=== PATIENT | male | born 1990 | race African-American/Black ===

== ENCOUNTER 2017-02-19 10:08 | Emergency (ER) | payer SELFPAY ==
[2017-02-19 10:11] VITALS: BP 109/72
--- NOTE | 2017-02-19 10:15 | ER Document Report ---
ED Medical Screen (RME) - General Stated Complaint: TOOTH PAIN Notes: Patient complains of dental pain to lower jaw both sides. Patient states swelling to right jaw started yesterday. TRAVEL OUTSIDE OF THE U.S. IN LAST 30 DAYS: No - Related Data Allergies/Adverse Reactions: No Known Allergies Allergy (Verified 09/16/16 12:15) Past Medical History Pulmonary Medical History: Reports: Hx Asthma, Hx Pneumonia - Immunizations Hx Diphtheria, Pertussis, Tetanus Vaccination: Yes Physical Exam - Vital signs Vitals: Temp Pulse Resp BP Pulse Ox 98.8 F 67 14 109/72 98 02/19/17 10:11 02/19/17 10:11 02/19/17 10:11 02/19/17 10:11 02/19/17 10:11 - HEENT Teeth diagram: 1 - decay Notes: mild facial swelling noted right side. Gums swollen around right wisdom tooth. Course - Vital Signs Vital signs: Temp Pulse Resp BP Pulse Ox 98.8 F 67 14 109/72 98 02/19/17 10:11 02/19/17 10:11 02/19/17 10:11 02/19/17 10:11 02/19/17 10:11
--- NOTE | 2017-02-19 10:56 | ER Document Report ---
ED Oral Problem - General Chief Complaint: Toothache Stated Complaint: TOOTH PAIN Notes: Patient is here complaining of pain in the lower posterior molars on both sides starting yesterday with swelling and infection on the right side starting this morning. He noted that the swollen area has just started draining and bleeding into his mouth as he was put into this examining room and he is now spitting blood. He says it has a nasty taste. Also, since the bleeding began, the swelling is starting to go down and feeling better. Has not had a previous dental abscess, but has bad teeth. Has not had a fever. No complicating factors such as diabetes. TRAVEL OUTSIDE OF THE [place] IN LAST 30 DAYS: No - Related Data Allergies/Adverse Reactions: No Known Allergies Allergy (Verified 02/19/17 10:14) Past Medical History - Social History Smoking Status: Never Smoker Chew tobacco use (# tins/day): No Frequency of alcohol use: Occasional Drug Abuse: None Family History: Reviewed & Not Pertinent, Arthritis Patient has suicidal ideation: No Patient has homicidal ideation: No Pulmonary Medical History: Reports: Hx Asthma, Hx Pneumonia Endocrine Medical History: Denies: Hx Diabetes Mellitus Type 1, Hx Diabetes Mellitus Type 2 Surgical Hx: Negative - Immunizations Hx Diphtheria, Pertussis, Tetanus Vaccination: Yes Review of Systems - Review of Systems Constitutional: denies: Fever Cardiovascular: denies: Chest pain Gastrointestinal: denies: Abdominal pain Skin: denies: Rash Physical Exam - Vital signs Vitals: Temp Pulse Resp BP Pulse Ox 98.8 F 67 14 109/72 98 02/19/17 10:11 02/19/17 10:11 02/19/17 10:11 02/19/17 10:11 02/19/17 10:11 - Notes Notes: PHYSICAL EXAMINATION: GENERAL: Well-appearing, in no acute distress. Vital signs are normal. Afebrile. HEAD: Atraumatic, normocephalic. EYES: Pupils equal round and reactive to light, extraocular movements intact. ENT: oropharynx clear without exudates. Moist mucous membranes. Cavities in the posterior most lower molars bilaterally. Some swelling noted lateral to the right carous molar which is very tender to touch. There appears to be some drainage of purulent bloody material from that region. No fluctuance felt anywhere around this swollen area. Patient says the swelling has decreased and his pain is improving. No impediment to swallowing or breathing. NECK: Normal range of motion, supple. No swelling or significant adenopathy LUNGS: Breath sounds clear and equal bilaterally. HEART: Regular rate and rhythm without murmurs. ABDOMEN: Soft, nontender. No guarding or rebound. SKIN: Warm, dry, no rashes. Course - Vital Signs Vital signs: Temp Pulse Resp BP Pulse Ox 98.8 F 67 14 109/72 98 02/19/17 10:11 02/19/17 10:11 02/19/17 10:11 02/19/17 10:11 02/19/17 10:11 Discharge - Discharge Clinical Impression: Toothache, Abscessed tooth Condition: Stable Disposition: HOME, SELF-CARE Additional Instructions: TOOTHACHE: Your pain is due to dental decay. The tooth must be repaired in order for you to feel better. You will, therefore, be referred to a dentist. We do not have dentists on the staff at [facility]. Severe swelling or drainage around a tooth usually means a dental abscess. This also requires evaluation and treatment by the dentist, but antibiotics may be prescribed while awaiting dental treatment. You should be rechecked immediately if you develop major swelling of the face, increasing pain, a lump in the jaw or gums, headache, difficulty swallowing, or fever. Dental Infection or Abscess You have an infection, perhaps an abscess (pus formation) of the gum around one of your teeth, which is probably decayed. If there is an abscess, it may drain on its own or it may need to be opened or lanced. Severe swelling or drainage around a tooth usually means a deep dental abscess which usually requires evaluation and treatment by a dentist or oral surgeon. Antibiotics may be prescribed while awaiting dental treatment. If you develop high fever with chills, worsening pain, or increasing swelling in the area, see a dentist or oral surgeon immediately or return to the Emergency Department immediately. ORAL NARCOTIC MEDICATION: You have been given a prescription for pain control. This medication is a narcotic. It's best taken with food, as nausea can result if taken on an empty stomach. Don't operate machinery or drive within six hours of taking this medication. Do not combine this medicine with alcohol, or with any medication which can cause sedation (such as cold tablets or sleeping pills) unless you get permission from the physician. Narcotics tend to cause constipation. If possible, drink plenty of fluids and eat a diet high in fiber and fruits. PENICILLIN V K: You have been given a prescription for Penicillin VK. Your physician has determined that this is the best antibiotic for your condition. Pen VK can be taken with meals, however more of the antibiotic gets into the bloodstream if it's taken on an empty stomach. Penicillin usually has no side effects. However, allergy to penicillins is common. If you have had an allergic reaction to any drug of the penicillin family, you should never take any other penicillin. Notify your doctor at once if you develop hives, itching, swelling, faintness, or shortness of breath. Gently rubbed and massaged the right side of your face where the abscess is located to gently depress pus out as it's healing. Also swish around in warm water in your mouth about 6 times a day, especially after meals. FOLLOW-UP CARE: You have been referred for follow-up care to the dentists listed below. Call the dentists office for an appointment as you were instructed or within the next two days. If you experience worsening or a significant change in your symptoms, notify the physician immediately or return to the Emergency Department at any time for re-evaluation. [facility] [address] [place], [place] Saturday mornings, by appointment [facility] [address] [place] [address] [facility] [address] [facility] [address] [facility] [address] [email or web address] [address] [place] [address] Saturday- 8:00am to 5:00 pm Will see patients from other [facility]. Charges based on income and family size and accepts Medicare, Medicaid, and Insurances Will pull molars [facility] [address] Hours of Operation 8:00 am - 4:30 pm weekdays The following dental offices accept Medicaid: [facility] Dr. Bl[address] Dr. Braga Dr. Blanco Dr. Stacy Anmol Rojas, [place], and [place] oral surgery Dr. Del Castillo ([place]) Dr. Vasquez ([place]) [facility] Drs. Davis and Rishabh ([place]) Dr. Mullen ([place]) [facility] Dr. Mclean ([place]) Drs. Crocker and ([place]) Medicaid Care Line Prescriptions: Oxycodone HCl/Acetaminophen [Percocet 5-325 mg Tablet] 1 - 2 tab PO Q4HP PRN # 15 tablet PRN Reason: Penicillin V Potassium [Penicillin Vk 250 mg Tablet] 250 mg PO QID #25 tablet Forms: Return to Work
== END 2017-02-19 11:04 | disposition home or self-care (01) ==
LOC: ER 10:08
DX: K08.9 Disorder of teeth and supporting structures, unspecified (principal); K04.7 Periapical abscess without sinus
CPT/HCPCS: 99282

== ENCOUNTER 2017-03-13 12:37 | Emergency (ER) | payer SELFPAY ==
--- NOTE | 2017-03-13 13:30 | ER Document Report ---
HPI - HPI Patient complains to provider of: sore throat, cough, headache Onset: Yesterday Onset/Duration: Sudden Quality of pain: Achy Pain Level: 2 Context: Patient presents to the emergency department with complaints of sore throat headache productive cough with green sputum that started yesterday. Denies fever vomiting diarrhea. Reports history of asthma without treatment. Denies recent exposure to strep. Reports he coughed all night. Associated Symptoms: Productive cough, Headache, Sore throat Exacerbated by: Denies Relieved by: Denies Similar symptoms previously: No Recently seen / treated by doctor: No - REPRODUCTIVE Reproductive: DENIES: : - DERM Skin Color: Normal Past Medical History - General Information source: Patient - Social History Smoking Status: Unknown if Ever Smoked Cigarette use (# per day): No Chew tobacco use (# tins/day): No Frequency of alcohol use: None Drug Abuse: None Occupation: yard works Family History: Reviewed & Not Pertinent, Arthritis Patient has suicidal ideation: No Patient has homicidal ideation: No Pulmonary Medical History: Reports: Hx Asthma, Hx Pneumonia Endocrine Medical History: Denies: Hx Diabetes Mellitus Type 1, Hx Diabetes Mellitus Type 2 Renal/ Medical History: Denies: Hx Peritoneal Dialysis Surgical Hx: Negative - Immunizations Hx Diphtheria, Pertussis, Tetanus Vaccination: Yes Vertical Provider Document - CONSTITUTIONAL Agree With Documented VS: Yes Exam Limitations: No Limitations General Appearance: WD/WN, No Apparent Distress - Nontoxic looking - INFECTION CONTROL TRAVEL OUTSIDE OF THE [place] IN LAST 30 DAYS: No - HEENT HEENT: Atraumatic, Normal ENT Exam, Normocephalic. negative: Conjuctival Injection, Pharyngeal Exudate, Pharyngeal Tenderness, Pharyngeal Erythema - No peritonsillar abscess good clear voice no trismus, Tympanic Membrane Red, Tympanic Membrane Bulging - NECK Neck: Normal Inspection, Supple. negative: Lymphadenopathy-Left, Lymphadenopathy-Right - RESPIRATORY Respiratory: Breath Sounds Normal, No Respiratory Distress - No cough noted during the entire assessment and interview. O2 Sat by Pulse Oximetry: 99 - CARDIOVASCULAR Cardiovascular: Regular Rate, Regular Rhythm - GI/ABDOMEN Gastrointestinal: Abdomen Soft, Abdomen Non-Tender - BACK Back: Normal Inspection - MUSCULOSKELETAL/EXTREMETIES Musculoskeletal/Extremeties: MAEW, FROM - NEURO Level of Consciousness: Awake, Alert, Appropriate Motor/Sensory: No Motor Deficit - DERM Integumentary: Warm, Dry Course - Re-evaluation Re-evalutation: 03/13/17 13:32 Patient looks great no coughing noted respiratory rate even and unlabored. No erythema or exudate noted to the throat. Patient was instructed on over-the- counter antihistamines. Patient was instructed to follow up with primary care provider for recheck within 1 week. - Vital Signs Vital signs: Temp Pulse Resp BP Pulse Ox 99 F 67 18 116/49 L 99 03/13/17 12:51 03/13/17 12:51 03/13/17 12:51 03/13/17 12:51 03/13/17 12:51 Discharge - Discharge Clinical Impression: Sore throat, cough congestion Headache Qualifiers: Headache type: unspecified Headache chronicity pattern: unspecified pattern Intractability: not intractable Qualified Code(s): R51 - Headache Condition: Stable Disposition: HOME, SELF-CARE Instructions: Sore Throat ([facility]), Headache ([facility]), Antihistamines ([facility]) Additional Instructions: *You have been evaluated for cold symptoms today, cough, congestion, sore throat , headache *Increase fluid intake *Take over the counter antihistamine as indicated such as zyrtec or claritan *Monitor your temperature, take Tylenol as indicated *Follow up with a primary care provider within one week for recheck *Return to ED for worsening condition, changes, needs Forms: Return to Work
[2017-03-13 13:47] VITALS: BP 103/60
== END 2017-03-13 13:46 | disposition home or self-care (01) ==
LOC: ER 12:37
DX: J02.9 Acute pharyngitis, unspecified (principal); R05 Cough; R68.89 Other general symptoms and signs
CPT/HCPCS: 99283

== ENCOUNTER 2017-04-09 15:37 | Emergency (ER) | payer SELFPAY ==
--- NOTE | 2017-04-09 17:28 | ER Document Report ---
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 The patient states he's holding the weed Flaquita every day for several hours out of the day and he gets pain in the wrist. He denies any fever, chills, redness or swelling. Additionally, been experiencing some crampy abdominal discomfort which is been intermittent. There is been no vomiting. He states he intermittently gets diarrhea and constipation there is never been any blood in the stool. He denies any history of Crohn's or ulcerative colitis in the family. TRAVEL OUTSIDE OF THE [place] IN LAST 30 DAYS: No - HPI Onset: Other - The past month Onset/Duration: Gradual Quality of pain: Dull Severity: None Pain Level: Denies Associated Symptoms: denies: Chest pain, Earache, Shortness of breath Exacerbated by: Denies Relieved by: Denies Similar symptoms previously: No Recently seen / treated by doctor: No - Related Data Smoking: Non-smoker Frequency of alcohol use: None Drug Abuse: None Allergies/Adverse Reactions: No Known Allergies Allergy (Verified 04/09/17 17:09) Past Medical History - General Information source: Patient - Social History Cigarette use (# per day): No Chew tobacco use (# tins/day): No Frequency of alcohol use: None Drug Abuse: None Lives with: Family Family history: None - Medical History Medical History: Negative Pulmonary Medical History: Reports: Hx Asthma, Hx Pneumonia Endocrine Medical History: Denies: Hx Diabetes Mellitus Type 1, Hx Diabetes Mellitus Type 2 Renal/ Medical History: Denies: Hx Peritoneal Dialysis Surgical Hx: Negative - Immunizations Hx Diphtheria, Pertussis, Tetanus Vaccination: Yes Review of Systems - Review of Systems Constitutional: See HPI. denies: Chills, Fever EENT: No symptoms reported Cardiovascular: No symptoms reported Respiratory: No symptoms reported Gastrointestinal: See HPI Genitourinary: No symptoms reported Male Genitourinary: No symptoms reported Musculoskeletal: See HPI Skin: No symptoms reported Hematologic/Lymphatic: No symptoms reported Neurological/Psychological: No symptoms reported Physical Exam - Vital signs Vitals: Temp Pulse Resp BP Pulse Ox 98.6 F 71 16 101/59 L 99 04/09/17 15:51 04/09/17 15:51 04/09/17 15:51 04/09/17 15:51 04/09/17 15:51 Notes: Physical exam: GENERAL: 26-year-old man, alert and oriented 3, no acute distress. HEAD: Atraumatic, normocephalic. EYES: Pupils equal round and reactive to light, extraocular movements intact, sclera anicteric, conjunctiva are normal. ENT: TMs normal, nares patent, oropharynx clear without exudates. Moist mucous membranes. NECK: Normal range of motion, supple without lymphadenopathy or JVD. LUNGS: Breath sounds clear to auscultation bilaterally and equal. No wheezes rales or rhonchi. HEART: Regular rate and rhythm without murmurs, rubs or gallops. ABDOMEN: Soft, normoactive bowel sounds. No tenderness to palpation. No guarding, no rebound. No masses appreciated. EXTREMITIES: Normal range of motion, no pitting or edema. No clubbing or cyanosis. NEUROLOGICAL: Cranial nerves II through XII grossly intact. Normal speech, normal gait. PSYCH: Normal mood, normal affect. SKIN: Warm, Dry, normal turgor, no rashes or lesions noted. Course - Vital Signs Vital signs: Temp Pulse Resp BP Pulse Ox 98.6 F 71 16 101/59 L 99 04/09/17 15:51 04/09/17 15:51 04/09/17 15:51 04/09/17 15:51 04/09/17 15:51 - Laboratory Result Diagrams: 04/09/17 18:30 04/09/17 18:30 Laboratory results interpreted by me: 04/09/17 04/09/17 18:30 18:30 Monocytes % 14.6 H Total Protein 8.3 H Doctor's Discharge - Discharge Clinical Impression: wrist tendinitis, abdominal cramping Condition: Stable Disposition: HOME, SELF-CARE Additional Instructions: As far as a the tenderness over the wrist, I think you are prone to a tendinitis because of the constant holding of the weed whacker and the vibration from the machine. If there are particular days when the wrist is acting up, I would wear the splint that we provide you. If the wrist tendinitis gets worse: I left the number for the orthopedic clinic affiliated with the [facility]. His far as the abdominal symptoms: Many of these symptoms are consistent with irritable bowel syndrome. I recommend you start taking probiotics daily: Some probiotics are Activia [place] yogurt which is sold next to the milk in [employer] and some supermarkets. Some health-food stores have probiotic pills that you take daily. These promote good GI tract health and are good for the immune system. I recommend you follow-up with a primary care doctor: I left the number for the [facility]. Referrals: TEOFILO ANGELO MD [ACTIVE STAFF] - Follow up as needed (This is the number for the orthopedic (bone doctor)) [facility] [Provider Group] - Follow up as needed (This is the number for a primary care doctor.)
[2017-04-09 18:58] LABS: ABSOLUTE EOSINOPHILS # (AUTO) 0.1 10^3/uL (0.0-0.6); ABSOLUTE LYMPHOCYTES (AUTO) 1.1 10^3/uL (0.5-4.7); ABSOLUTE MONOCYTES (AUTO) 0.7 10^3/uL (0.1-1.4); ABSOLUTE NEUT (AUTO) 3.2 10^3/uL (1.7-8.2); BASOPHILS % (AUTO) 0.5 % (0-2); EOSINOPHILS % (AUTO) 1.7 % (0-6); HEMATOCRIT 40.5 % (37.9-51.0); HEMOGLOBIN 13.6 g/dL (13.5-17.0); HGB HCT DIFFERENCE 0.3; LYMPHOCYTES % (AUTO) 21.4 % (13-45); MEAN CORPUSCULAR HEMOGLOBIN 30.3 pg (27.0-33.4); MEAN CORPUSCULAR HGB CONC 33.6 g/dL (32.0-36.0); MEAN CORPUSCULAR VOLUME 90 fl (80-97); MONOCYTES % (AUTO) 14.6 % (3-13); RED BLOOD COUNT 4.49 10^6/uL (4.35-5.55); RED CELL DISTRIBUTION WIDTH 13.6 % (11.5-14.0); SEGMENTED NEUTROPHILS % (AUTO) 61.8 % (42-78); WHITE BLOOD COUNT 5.1 10^3/uL (4.0-10.5)
[2017-04-09 19:16] LABS: ALANINE AMINOTRANSFERASE 26 U/L (21-72); ALBUMIN 4.6 g/dL (3.5-5.0); ALKALINE PHOSPHATASE 72 U/L (38-126); ANION GAP 10 (5-19); ASPARTATE AMINO TRANSFERASE 34 U/L (17-59); BILIRUBIN,DIRECT 0.3 mg/dL (0.0-0.4); BILIRUBIN,TOTAL 0.7 mg/dL (0.2-1.3); BLOOD UREA NITROGEN 13 mg/dL (7-20); CALCIUM 9.8 mg/dL (8.4-10.2); CARBON DIOXIDE 28 mmol/L (22-30); CHLORIDE 103 mmol/L (98-107); CREATININE RESULT 0.95 mg/dL (0.52-1.25); GLUCOSE 95 mg/dL (75-110); POTASSIUM 4.2 mmol/L (3.6-5.0); SODIUM 140.7 mmol/L (137-145); TOTAL PROTEIN 8.3 g/dL (6.3-8.2)
[2017-04-09 20:03] VITALS: BP 117/74
== END 2017-04-09 20:00 | disposition home or self-care (01) ==
LOC: ER 15:37
DX: M77.9 Enthesopathy, unspecified (principal); R10.84 Generalized abdominal pain; J45.909 Unspecified asthma, uncomplicated
CPT/HCPCS: 99284; 36415; 85025; 80053; L3984

== ENCOUNTER 2017-11-07 07:46 | Emergency (ER) | payer SELFPAY ==
--- NOTE | 2017-11-07 08:06 | ER Document Report ---
ED General - General Chief Complaint: Toothache Stated Complaint: CONGESTION Time Seen by Provider: 11/07/17 07:57 TRAVEL OUTSIDE OF THE U.S[place] IN LAST 30 DAYS: No - HPI Notes: 27 years old male presents today with nearly 2 day history of toothache on the left lower molar tooth, feeling feverish, chilled and dizzy on and off. Coughing yellow-green sputum but has no difficulty in breathing or wheezing. Has a history of asthma. - Related Data Allergies/Adverse Reactions: No Known Allergies Allergy (Verified 11/07/17 07:48) Past Medical History - Social History Smoking Status: Never Smoker Drug Abuse: None Lives with: Alone Family History: Reviewed & Not Pertinent, Arthritis Pulmonary Medical History: Reports: Hx Asthma, Hx Pneumonia Endocrine Medical History: Denies: Hx Diabetes Mellitus Type 1, Hx Diabetes Mellitus Type 2 Renal/ Medical History: Denies: Hx Peritoneal Dialysis - Immunizations Hx Diphtheria, Pertussis, Tetanus Vaccination: Yes Review of Systems - Review of Systems Constitutional: No symptoms reported, See HPI EENT: See HPI Cardiovascular: No symptoms reported, See HPI Respiratory: See HPI Gastrointestinal: No symptoms reported. denies: See HPI, Abdomen distended, Abdominal pain, Diarrhea, Nausea, Vomiting, Constipation, Blood streaked bowels , Poor appetite, Poor fluid intake, Blood in vomit, Black stools, Rectal bleeding, Last bowel movement, Fecal incontinence, Other Genitourinary: No symptoms reported. denies: See HPI, Burning, Dysuria, Discharge, Frequency, Flank pain, Hematuria, Incontinence, Pain, Urgency, Retention, Other Skin: No symptoms reported. denies: See HPI, Change in color, Change in hair/ nails, Dryness, Lesions, Lumps, Rash, Other Neurological/Psychological: No symptoms reported. denies: See HPI, Confusion, Dementia, Depression, Hallucinations, Anxiety, Homicidal ideation, Sensory change, Weakness, Gait changes, Loss of power, Paralysis, Seizure, Lost consciousness, Headaches, Speech impairment, Numbness, Suicidal ideation, Tingling, Tremor, Other Physical Exam - Vital signs Vitals: Temp Pulse Resp BP Pulse Ox 98.0 F 72 12 120/73 98 11/07/17 07:50 11/07/17 07:50 11/07/17 07:50 11/07/17 07:50 11/07/17 07:50 - Notes Notes: General exam: Alert oriented 3, appears well, not in any acute distress, body habitus------. HEENT: Normocephalic atraumatic pupils were equal reactive to light extraocular muscles were within normal range. Neck is supple no JVD no lymphadenopathy. Oral mucosa-not erythematous, no lesions noted no tonsillar enlargement. Except left lower last molar tooth is discolored which is yellowish in color and seen some purulent discharge. Chest no lesions, nontraumatic, nontender. No deformity Lungs: Bilaterally clear breath sounds no rales or wheezing, no adventitial sounds, no dullness on percussion. Cardiovascular system: Normal S1-S2 no murmurs, no gallop. Regular rhythm. No peripheral edema over the lower extremities. Gastrointestinal: Normal appearance, positive bowel sounds in all 4 quadrants, no Hepatosplenomegaly, no obvious masses, no obvious abdominal bruit. No horseshoe dullness. Inguinal region: No masses or obvious inguinal hernia noted Genitourinary: Rectal exam: Nervous system: Alert oriented 3, no cranial nerve weakness, no focal neurological deficit noted. Sensation is intact over the lower extremities for pain and touch. Reflexes are 2+ over both patella. Upper extremities: No trauma as noted, normal range of motion for both shoulders , elbows and wrist. Lower extremity: No traumas or deformities noted, normal range of motion for flexion extension abduction abduction of both hip joints, Normal flexion and extension of knee joint. Normal range of motion for plantarflexion dorsiflexion and eversion inversion for both ankles. Skin: No erythema, no edema, no obvious lesions noted Course - Vital Signs Vital signs: Temp Pulse Resp BP Pulse Ox 98.0 F 72 12 120/73 98 11/07/17 07:50 11/07/17 07:50 11/07/17 07:50 11/07/17 07:50 11/07/17 07:50 - Laboratory Result Diagrams: 11/07/17 08:26 Laboratory results interpreted by me: 11/07/17 08:26 Hgb 13.2 L - Diagnostic Test Radiology results interpreted by me: 11/07/17 09:40 Diagnostic report text EXAM DESCRIPTION: CHEST PA/LAT COMPLETED DATE/TIME: 11/07/2017 8:19 am REASON FOR STUDY: cough COMPARISON: 12/13/2013. EXAM PARAMETERS: NUMBER OF VIEWS: two views TECHNIQUE: Digital Frontal and Lateral radiographic views of the chest acquired. RADIATION DOSE: NA LIMITATIONS: none FINDINGS: LUNGS AND PLEURA: No opacities, masses or pneumothorax. No pleural effusion. MEDIASTINUM AND HILAR STRUCTURES: No masses or contour abnormalities. HEART AND VASCULAR STRUCTURES: Heart normal size. No evidence for failure. BONES: No acute findings. HARDWARE: None in the chest. OTHER: No other significant finding. IMPRESSION: NO SIGNIFICANT RADIOGRAPHIC FINDING IN THE CHEST. TECHNICAL DOCUMENTATION: JOB ID: [id number]- All Rights Reserved Dictated by: PETRONA RICHARDS MD [id number] Discharge - Discharge Clinical Impression: Bronchitis, Dental abscess URI (upper respiratory infection) Qualifiers: URI type: unspecified viral URI Qualified Code(s): J06.9 - Acute upper respiratory infection, unspecified; B97.89 - Other viral agents as the cause of diseases classified elsewhere; B97.89 - Other viral agents as the cause of diseases classified elsewhere Condition: Fair Disposition: HOME, SELF-CARE Instructions: Penicillin V K ([facility]), Toothache ([facility]), Upper Respiratory Illness ([facility]) Prescriptions: Penicillin V Potassium [Penicillin Vk 500 mg Tablet] 500 mg PO BID #20 tablet
--- NOTE | 2017-11-07 08:38 | RADIOLOGY REPORT (SQ) ---
EXAM DESCRIPTION: CHEST PA/LAT COMPLETED DATE/TIME: 11/07/2017 8:19 am REASON FOR STUDY: cough COMPARISON: 12/13/2013. EXAM PARAMETERS: NUMBER OF VIEWS: two views TECHNIQUE: Digital Frontal and Lateral radiographic views of the chest acquired. RADIATION DOSE: NA LIMITATIONS: none FINDINGS: LUNGS AND PLEURA: No opacities, masses or pneumothorax. No pleural effusion. MEDIASTINUM AND HILAR STRUCTURES: No masses or contour abnormalities. HEART AND VASCULAR STRUCTURES: Heart normal size. No evidence for failure. BONES: No acute findings. HARDWARE: None in the chest. OTHER: No other significant finding. IMPRESSION: NO SIGNIFICANT RADIOGRAPHIC FINDING IN THE CHEST. TECHNICAL DOCUMENTATION: JOB ID: [id number]- All Rights Reserved
[2017-11-07 08:39] LABS: ABSOLUTE BASOPHILS # (AUTO) 0.1 10^3/uL (0.0-0.2); ABSOLUTE EOSINOPHILS # (AUTO) 0.3 10^3/uL (0.0-0.6); ABSOLUTE LYMPHOCYTES (AUTO) 1.8 10^3/uL (0.5-4.7); ABSOLUTE MONOCYTES (AUTO) 0.8 10^3/uL (0.1-1.4); ABSOLUTE NEUT (AUTO) 3.8 10^3/uL (1.7-8.2); BASOPHILS % (AUTO) 0.8 % (0-2); HEMATOCRIT 39.5 % (37.9-51.0); HEMOGLOBIN 13.2 g/dL (13.5-17.0); HGB HCT DIFFERENCE 0.1; LYMPHOCYTES % (AUTO) 27.1 % (13-45); MEAN CORPUSCULAR HEMOGLOBIN 29.8 pg (27.0-33.4); MEAN CORPUSCULAR HGB CONC 33.5 g/dL (32.0-36.0); MEAN CORPUSCULAR VOLUME 89 fl (80-97); MONOCYTES % (AUTO) 11.4 % (3-13); RED BLOOD COUNT 4.45 10^6/uL (4.35-5.55); RED CELL DISTRIBUTION WIDTH 13.7 % (11.5-14.0); SEGMENTED NEUTROPHILS % (AUTO) 56.7 % (42-78); WHITE BLOOD COUNT 6.7 10^3/uL (4.0-10.5)
[2017-11-07 10:27] VITALS: BP 114/70
== END 2017-11-07 10:29 | disposition home or self-care (01) ==
LOC: ER 07:46
DX: K04.7 Periapical abscess without sinus (principal); J06.9 Acute upper respiratory infection, unspecified; B97.89 Other viral agents as the cause of diseases classified elsewhere; J45.909 Unspecified asthma, uncomplicated; K08.89 Other specified disorders of teeth and supporting structures; R42 Dizziness and giddiness; R68.83 Chills (without fever); R05 Cough
CPT/HCPCS: 36415; 71020; 85025; 99283

== ENCOUNTER 2018-07-29 17:42 | Emergency (ER) | payer SELFPAY ==
[2018-07-29 18:01] VITALS: BP 103/58
--- NOTE | 2018-07-29 19:23 | ER Document Report ---
ED General - General Chief Complaint: Lower Abdominal Pain Stated Complaint: STOMACH/GROIN PAIN, LEG PAIN Time Seen by Provider: 07/29/18 19:09 Notes: 27-year-old male here with complaints of intermittent short-lived abdominal pain just below his navel that has been ongoing for the past 3-4 weeks. The pain is sharp lasting just seconds before complete resolution. It is not associated with coughing heavy lifting urination but he does sometimes have it with defecation. Last week he had some vomiting and diarrhea however this has resolved. He does not currently have any abdominal pain. He has not tried anything for the symptoms. Denies any known sick contacts. No urinary symptoms. Patient denies any other complaints. TRAVEL OUTSIDE OF THE [place] IN LAST 30 DAYS: No - Related Data Allergies/Adverse Reactions: No Known Allergies Allergy (Verified 07/29/18 18:49) Past Medical History - Social History Smoking Status: Never Smoker Chew tobacco use (# tins/day): No Frequency of alcohol use: Occasional Drug Abuse: None Family History: Reviewed & Not Pertinent, Arthritis Patient has suicidal ideation: No Patient has homicidal ideation: No Pulmonary Medical History: Reports: Hx Asthma, Hx Pneumonia Endocrine Medical History: Denies: Hx Diabetes Mellitus Type 1, Hx Diabetes Mellitus Type 2 Renal/ Medical History: Denies: Hx Peritoneal Dialysis - Immunizations Hx Diphtheria, Pertussis, Tetanus Vaccination: Yes Review of Systems - Review of Systems Notes: See history of present illness for pertinent positive review of systems; otherwise all review of systems have been reviewed and are negative Physical Exam - Vital signs Vitals: Temp Pulse Resp BP Pulse Ox 98.5 F 64 16 103/58 L 98 07/29/18 18:00 07/29/18 18:00 07/29/18 18:00 07/29/18 18:00 07/29/18 18:00 - Notes Notes: PHYSICAL EXAMINATION: GENERAL: Well-appearing and in no acute distress. HEAD: Atraumatic, normocephalic. EYES: Pupils equal round and reactive to light, extraocular movements intact, sclera anicteric, conjunctiva are normal. ENT: nares patent, oropharynx clear without exudates. Moist mucous membranes. NECK: Normal range of motion, supple without lymphadenopathy LUNGS: CTAB and equal. No wheezes rales or rhonchi. HEART: Regular rate and rhythm without murmurs ABDOMEN: Soft, no tenderness. No facial grimacing/wincing upon palpation. No guarding, no rebound. EXTREMITIES: Normal range of motion, no pitting edema. No cyanosis. NEUROLOGICAL: Cranial nerves grossly intact. Normal sensory/motor exams. PSYCH: Normal mood, normal affect. SKIN: Warm, Dry, normal turgor, no rashes or lesions noted Course - Re-evaluation Re-evalutation: 07/29/18 19:23 MEDICAL DECISION MAKING: Concern for periumbilical hernia, given history and exam Low clinical suspicion for acute emergent pathology at this time Will prescribe Bentyl Zofran Colace Patient understands and agrees to the plan of care - Vital Signs Vital signs: Temp Pulse Resp BP Pulse Ox 98.5 F 64 16 103/58 L 98 07/29/18 18:00 07/29/18 18:00 07/29/18 18:00 07/29/18 18:00 07/29/18 18:00 Discharge - Discharge Clinical Impression: Lower abdominal pain Constipation Qualifiers: Constipation type: unspecified constipation type Qualified Code(s): K59.00 - Constipation, unspecified Condition: Good Disposition: HOME, SELF-CARE Additional Instructions: You were seen in the emergency department at [facility]. Use the Colace for constipation. Use the Zofran for vomiting. Use the Bentyl for abdominal pain. Please followup with your primary physician or surgeon in the next few days for further management/evaluation. Please return to the emergency department for worsening of symptoms or any symptom that you deem to be concerning or life-threatening. Thank you for allowing us to be part of your care. Prescriptions: Ondansetron [Zofran Odt 4 mg Tablet] 1 - 2 tab PO Q4HP PRN #10 tab.rapdis PRN Reason: Dicyclomine HCl [Bentyl 10 mg Capsule] 1 cap PO TID #14 cap Docusate Sodium [Colace] 100 mg PO DAILYP PRN #14 capsule PRN Reason: Referrals: BRADLY BURRIS MD [ROM[facility] WOOD] - Follow up as needed
== END 2018-07-29 19:28 | disposition home or self-care (01) ==
LOC: ER 17:42
DX: K59.00 Constipation, unspecified (principal); J45.909 Unspecified asthma, uncomplicated
CPT/HCPCS: 99283

== ENCOUNTER 2019-01-11 15:38 | Emergency (ER) | payer SELFPAY ==
--- NOTE | 2019-01-11 16:17 | RADIOLOGY REPORT (SQ) ---
EXAM DESCRIPTION: HAND RIGHT 3 VIEWS COMPLETED DATE/TIME: 01/11/2019 4:00 pm REASON FOR STUDY: R hand pain s/p fall from ladder yesterday COMPARISON: 09/16/2016 EXAM PARAMETERS: NUMBER OF VIEWS: Three views. TECHNIQUE: AP, lateral and oblique radiographic images acquired of the right hand. LIMITATIONS: None. FINDINGS: MINERALIZATION: Normal. BONES: Minimally displaced fractures of the proximal metaphyses of the 1st and 5th metacarpals, 5th m etacarpal fracture is intra-articular. Old injury of the middle phalanx of the right 5th digit. JOINTS: No effusion. SOFT TISSUES: Mild soft tissue swelling. No radiopaque foreign body. OTHER: No other significant finding. IMPRESSION: Minimally displaced fractures of the proximal metaphyses of the 1st and 5th metacarpals, 5th metacarpal fracture is intra-articular. TECHNICAL DOCUMENTATION: JOB ID: [id number] [place]-72 2010 [employer]- All Rights Reserved Reading location - IP/workstation name: [email or web address]
[2019-01-11] MEDS ORDERED: IBUPROFEN 800 MG TABLET PO ONE (16:41)
[2019-01-11] MEDS ORDERED: DIPH/PERTUSS(ACELL)/TETANUS VAC/PF 0.5 ML SYR (>=10YO) IM ONE (16:43)
--- NOTE | 2019-01-11 16:49 | ER Document Report ---
ED General - General Chief Complaint: Fall Injury Stated Complaint: HAND INJURY/LACERATION Time Seen by Provider: 01/11/19 16:06 Mode of Arrival: Ambulatory Information source: Patient TRAVEL OUTSIDE OF THE [place] IN LAST 30 DAYS: No - HPI Patient complains to provider of: Bilateral hand injury Onset: Yesterday Onset/Duration: Sudden Quality of pain: Throbbing Severity: Moderate Context: Fell fci down the ladder. Associated symptoms: None Exacerbated by: Movement Relieved by: Denies Similar symptoms previously: No Recently seen / treated by doctor: No Notes: Patient is a 28-year-old -[place] Citizen male presenting today for bilateral hand injuries. Yesterday states he was up on a ladder trying to get some stuff up off the roof of his house. As he was coming down he lost his balance and fell about fci down the ladder. He has injury to his right hand. Also has skin avulsion at the base of his left hand. Last tetanus greater than 5 years. - Related Data Allergies/Adverse Reactions: No Known Allergies Allergy (Verified 07/29/18 18:49) Past Medical History - General Information source: Patient - Social History Smoking Status: Never Smoker Family History: Reviewed & Not Pertinent, Arthritis Pulmonary Medical History: Reports: Hx Asthma, Hx Pneumonia Endocrine Medical History: Denies: Hx Diabetes Mellitus Type 1, Hx Diabetes Mellitus Type 2 Renal/ Medical History: Denies: Hx Peritoneal Dialysis - Immunizations Hx Diphtheria, Pertussis, Tetanus Vaccination: Yes Review of Systems - Review of Systems Notes: Constitutional: No fevers. No chills. EENT: Atraumatic Cardiovascular: No chest pain. No palpitations. Respiratory: No cough. No shortness of breath. No respiratory distress. Gastrointestinal: No abdominal pain. No nausea, vomiting, or diarrhea. Genitourinary: Atraumatic. No lesions. No pain. No discharge. Musculoskeletal: Bruising and soft tissue swelling right hand. Skin: Small skin avulsion left hand. Lymphatic: No swollen lymph nodes. Neurologic: No headache. No syncope. Psychiatric: No suicidal or homicidal ideation. Physical Exam - Vital signs Vitals: Temp Pulse Resp BP Pulse Ox 98.7 F 84 16 128/74 H 99 01/11/19 15:46 01/11/19 15:46 01/11/19 15:46 01/11/19 15:46 01/11/19 15:46 - Notes Notes: General: Well-developed, well-nourished. In no acute distress. Non-toxic appearing. Cardiac: Well-perfused. Regular rate and rhythm. No murmurs, rubs, or gallops. Pulmonary: No respiratory distress. No cyanosis. Bilateral lung fiels are clear to auscultation. Abdominal: Non-distended. Non-rigid. Bowels sounds are present in all four quadrants. No guarding or rebound. HEENT: Head is atraumatic. Conjunctivae not reddened. No tearing. PERRL. EOMI. Orbits atraumatic. No periorbital swelling or erythema. Oropharynx is without erythema, swelling, or exudates. Neck: Supple. No adenopathy. No meningismus. Dermatologic: Warm with good turgor. No rash. Atraumatic. Chest: Atraumatic. No chest wall tenderness to palpation. Musculoskeletal: There is mild soft tissue swelling to the dorsum of the right hand. There are obvious small deformities at the base of the first and fifth metacarpals. Range of motion is somewhat limited secondary to pain. Distal neurovascular exam is intact. Left hand small skin avulsion about the size of a nickel. No active bleeding. No bony deformities. Distal neurovascular exam is intact. Genitourinary: Examination deferred Neurologic: No gross neurologic deficits. Psychiatric: Normal mood. Course - Re-evaluation Re-evalutation: 01/11/19 16:51 Patient has metacarpal fractures on the first and fifth metacarpals on the right hand. No x-rays were performed of the left hand despite obvious injury. The skin injury is not going to require any sutures, but had like to make sure there is no bony injuries. 01/11/19 18:07 Patient has minimally displaced first and fifth metacarpal fractures on the right hand. We will go ahead and splint those with a thumb spica and an ulnar gutter. I will go ahead and give him a dose of [place] here to help with the pain and also send him home with prescription for [place]. He will follow-up with Dr. mancuso office tomorrow for further management - Vital Signs Vital signs: Temp Pulse Resp BP Pulse Ox 98.7 F 84 16 128/74 H 99 01/11/19 15:46 01/11/19 15:46 01/11/19 15:46 01/11/19 15:46 01/11/19 15:46 Discharge - Discharge Clinical Impression: Fracture, metacarpal Qualifiers: Encounter type: initial encounter Metacarpal bone: first Fracture type: closed Metacarpal location: base Fracture morphology: unspecified fracture morphology Fracture alignment: displaced Laterality: right Qualified Code(s): S62.231A - Other displaced fracture of base of first metacarpal bone, right hand, initial encounter for closed fracture Condition: Good Disposition: HOME, SELF-CARE Instructions: Fractured Metacarpal ([facility]), Splint Precautions ([facility]), Temporary Sling ([facility]) Additional Instructions: Be sure to call the office of the orthopedist, Dr. Mancuso, in the morning to set up your appointment. Prescriptions: Hydrocodone/Acetaminophen [[place] 7.5-325 Tablet] 1 each PO Q6H #12 tablet
--- NOTE | 2019-01-11 17:45 | RADIOLOGY REPORT (SQ) ---
EXAM DESCRIPTION: HAND LEFT 3 VIEWS COMPLETED DATE/TIME: 01/11/2019 5:03 pm REASON FOR STUDY: fall injury left hand COMPARISON: 11/30/2012. EXAM PARAMETERS: NUMBER OF VIEWS: Three views. TECHNIQUE: AP, lateral and oblique radiographic images acquired of the left hand. LIMITATIONS: None. FINDINGS: MINERALIZATION: Normal. BONES: No acute fracture or dislocation. No worrisome bone lesions. JOINTS: No effusions. SOFT TISSUES: No soft tissue swelling. No foreign body. OTHER: No other significant finding. IMPRESSION: NEGATIVE STUDY OF THE LEFT HAND. NO RADIOGRAPHIC EVIDENCE OF ACUTE INJURY. TECHNICAL DOCUMENTATION: JOB ID: [id number] [place]-69 2010 [email or web address]- All Rights Reserved Reading location - IP/workstation name: [email or web address]
[2019-01-11] MEDS ORDERED: HYDROCODONE/ACETAMINOPHEN 5-325 MG TABLET PO ONE (18:12)
[2019-01-11 18:38] VITALS: BP 120/71
== END 2019-01-11 18:41 | disposition home or self-care (01) ==
LOC: ER 15:38
DX: S62.231A Other displaced fracture of base of first metacarpal bone, right hand, initial encounter for closed fracture (principal); S62.306A Unspecified fracture of fifth metacarpal bone, right hand, initial encounter for closed fracture; S61.402A Unspecified open wound of left hand, initial encounter; W11.XXXA Fall on and from ladder, initial encounter; Y93.89 Activity, other specified; Y92.009 Unspecified place in unspecified non-institutional (private) residence as the place of occurrence of the external cause; J45.909 Unspecified asthma, uncomplicated
CPT/HCPCS: 90471; 90715; 99283

== ENCOUNTER 2019-08-06 13:36 | Emergency (ER) | payer SELFPAY ==
--- NOTE | 2019-08-06 13:50 | ER Document Report ---
ED ENT - General Chief Complaint: Ear Pain Stated Complaint: EAR/THROAT PAIN Time Seen by Provider: 08/06/19 13:48 Primary Care Provider: HALEY GLOVER PA-C [Primary Care Provider] - Follow up in 1 week TRAVEL OUTSIDE OF THE [place] IN LAST 30 DAYS: No - HPI Notes: 28-year-old male to the emergency department with complaints of right ear pain and sore throat for the past 3 days. States it hurts every time he swallows. He states that he has not been running a fever. He states that he has had a cough for about 1 to 2 months that has gotten a little bit better. He denies any chest pain, chills, shortness of breath, nausea, vomiting, diarrhea, headache, difficulty swallowing, drooling, neck pain. - Related Data Allergies/Adverse Reactions: No Known Allergies Allergy (Verified 08/06/19 13:37) Past Medical History - General Information source: Patient - Social History Smoking Status: Never Smoker Frequency of alcohol use: None Drug Abuse: None Family History: Reviewed & Not Pertinent, Arthritis Pulmonary Medical History: Reports: Hx Asthma, Hx Pneumonia Endocrine Medical History: Denies: Hx Diabetes Mellitus Type 1, Hx Diabetes Mellitus Type 2 Renal/ Medical History: Denies: Hx Peritoneal Dialysis - Immunizations Hx Diphtheria, Pertussis, Tetanus Vaccination: Yes Review of Systems - Review of Systems Constitutional: denies: Chills, Fever EENT: See HPI, Ear pain, Throat pain. denies: Difficulty swallowing, Throat swelling Cardiovascular: denies: Chest pain, Palpitations, Dyspnea, Syncope, Dizziness, Lightheaded Respiratory: See HPI - Thing to think about, Cough. denies: Short of breath Gastrointestinal: denies: Abdominal pain, Diarrhea, Nausea, Vomiting Genitourinary: No symptoms reported Musculoskeletal: No symptoms reported Skin: No symptoms reported Hematologic/Lymphatic: No symptoms reported Neurological/Psychological: No symptoms reported -: Yes All other systems reviewed and negative Physical Exam - Vital signs Vitals: Temp Pulse Resp BP Pulse Ox 98 F 66 18 117/69 98 08/06/19 13:42 08/06/19 13:42 08/06/19 13:42 08/06/19 13:42 08/06/19 13:42 Interpretation: Normal - General General appearance: Appears well, Alert In distress: None - HEENT Head: Normocephalic, Atraumatic Eyes: Normal Pupils: PERRL External canal: Cerumen impaction - There is cerumen impaction to the right ear canal. There is some mild pain with insertion of the speculum into the right ear canal. After irrigation it is noted that the right TM is clear however there is more discharge and erythema to the ear canal to suggest otitis externa. Left TM is clear. No perforation bilaterally. Tympanic membrane: Normal Sinus: No: Mastoid Nasal: Normal Mouth/Lips: Normal Mucous membranes: Normal Pharynx: Normal Neck: Normal, Supple. No: Meningismus - Respiratory Respiratory status: No respiratory distress Chest status: Nontender Breath sounds: Normal Chest palpation: Normal - Cardiovascular Rhythm: Regular Heart sounds: Normal auscultation Murmur: No - Neurological Neuro grossly intact: Yes Cognition: Normal Orientation: AAOx4 [place] Coma Scale Eye Opening: Spontaneous [place] Coma Scale Verbal: Oriented [place] Coma Scale Motor: Obeys Commands [place] Coma Scale Total: 15 Speech: Normal Motor strength normal: LUE, RUE, LLE, RLE Sensory: Normal - Psychological Associated symptoms: Normal affect, Normal mood - Skin Skin Temperature: Warm Skin Moisture: Dry Skin Color: Normal Course - Re-evaluation Re-evalutation: 08/06/19 Impression: Right otitis externa. Sore throat. Will discharge home with Flonase, Cortisporin, Naprosyn. Encourage patient to follow-up with primary care. Encouraged to return if any worsening symptoms. Patient agrees with the plan. - Vital Signs Vital signs: Temp Pulse Resp BP Pulse Ox 97.8 F 65 16 120/61 100 08/06/19 15:08 08/06/19 15:08 08/06/19 15:08 08/06/19 15:08 08/06/19 15:08 Discharge - Discharge Clinical Impression: Right ear pain, Sore throat Right otitis externa Qualifiers: Otitis externa type: unspecified type Chronicity: acute Qualified Code(s): H60.501 - Unspecified acute noninfective otitis externa, right ear Cerumen impaction Qualifiers: Laterality: right Qualified Code(s): H61.21 - Impacted cerumen, right ear Condition: Stable Disposition: HOME, SELF-CARE Instructions: Otitis Externa ([facility]) Additional Instructions: TAKE ALL MEDICINES PRESCRIBED. RETURN IF WORSENING PAIN, FEVERS, OR ANY OTHER CONCERNS. PUSH FLUIDS. Prescriptions: Neomy Sulf/Polymyx B Sulf/Hc [Cortisporin Ear Suspension] 10 ml OT TID #1 bottle Fluticasone Propionate [Flonase Nasal [place] 50 Mcg/[place] 16 gm] 2 sprays NASL Q12 #1 inhaler Naproxen [Naprosyn 250 mg Tablet] 500 mg PO BID #16 tablet Referrals: HALEY GLOVER PA-C [Primary Care Provider] - Follow up in 1 week
[2019-08-06] MEDS ORDERED: NAPROXEN 250 MG TABLET PO ONE (14:08)
[2019-08-06 15:10] VITALS: BP 120/61
== END 2019-08-06 15:08 | disposition home or self-care (01) ==
LOC: ER 13:36
DX: H61.21 Impacted cerumen, right ear (principal); H60.501 Unspecified acute noninfective otitis externa, right ear; H92.01 Otalgia, right ear; J02.9 Acute pharyngitis, unspecified; R05 Cough; J45.909 Unspecified asthma, uncomplicated
CPT/HCPCS: 99282

== ENCOUNTER 2020-01-01 09:37 | Emergency (ER) | payer SELFPAY ==
--- NOTE | 2020-01-01 10:35 | ER Document Report ---
ED Respiratory Problem - General Chief Complaint: Cough Stated Complaint: COUGH Time Seen by Provider: 01/01/20 10:25 Primary Care Provider: HALEY GLOVER PA-C [NO LOCAL MD] - Follow up as needed Mode of Arrival: Ambulatory Information source: Patient Notes: 29-year-old male presented to ED for complaint of cough cold congestion fever chills for about the last patient completed ibuprofen 3 days. Send and take him is alert oriented respirations regular nonlabored lungs are clear to auscultation. He does have a frequent cough. Nontoxic in appearance. Will send strep influenza and chest x-ray if these are all negative will discharge him home with recommendations for upper respiratory infection. TRAVEL OUTSIDE OF THE [place] IN LAST 30 DAYS: No - HPI Patient complains to provider of: Asthma, Cough Onset: Other Duration: Continuous Initiating Event: URI - Days Quality of pain: Achy Severity: Moderate Pain Level: 2 Context: Smoker Cough: Nonproductive Sputum amount: None Associated symptoms: Congestion, Cough, Fever, PND, Runny nose, Sinus homer n/pressure, Sore Throat Similar symptoms previously: Yes Recently seen / treated by doctor: No - Related Data Allergies/Adverse Reactions: No Known Allergies Allergy (Verified 08/06/19 13:37) Past Medical History - Social History Smoking Status: Current Every Day Smoker - Black and mild 1 a day Cigarette use (# per day): Yes Smoking Education Provided: Yes - 4 minutes Frequency of alcohol use: None Drug Abuse: None Lives with: Grandparent(s) Family History: Reviewed & Not Pertinent, Arthritis Patient has suicidal ideation: No Patient has homicidal ideation: No - Past Medical History Cardiac Medical History: Reports: None Pulmonary Medical History: Reports: Hx Asthma, Hx Pneumonia EENT Medical History: Reports: None Neurological Medical History: Reports: None Endocrine Medical History: Reports: None Renal/ Medical History: Reports: None Malignancy Medical History: Reports None GI Medical History: Reports: None Musculoskeletal Medical History: Reports Hx Musculoskeletal Trauma Skin Medical History: Reports None Psychiatric Medical History: Reports: None Traumatic Medical History: Reports: Hx Fractures - Right hand Infectious Medical History: Reports: None Past Surgical History: Reports: Hx Orthopedic Surgery - Right hand - Immunizations Hx Diphtheria, Pertussis, Tetanus Vaccination: Yes Review of Systems - Review of Systems Constitutional: Fever EENT: Nose congestion, Nose discharge, Sinus pressure, Sinus discharge Cardiovascular: No symptoms reported Respiratory: Cough Gastrointestinal: No symptoms reported Genitourinary: No symptoms reported Male Genitourinary: No symptoms reported Musculoskeletal: No symptoms reported Skin: No symptoms reported Hematologic/Lymphatic: No symptoms reported Neurological/Psychological: No symptoms reported -: Yes All other systems reviewed and negative Physical Exam - Vital signs Vitals: Temp Pulse Resp BP Pulse Ox 100.0 F 94 20 117/73 99 01/01/20 10:23 01/01/20 10:23 01/01/20 10:23 01/01/20 10:23 01/01/20 10:23 Interpretation: Normal - General General appearance: Appears well, Alert - HEENT Head: Normocephalic, Atraumatic Eyes: Normal Pupils: PERRL - Respiratory Respiratory status: No respiratory distress Chest status: Nontender Breath sounds: Nonproductive cough Chest palpation: Normal - Cardiovascular Rhythm: Regular Heart sounds: Normal auscultation Murmur: No - Abdominal Inspection: Normal Distension: No distension Bowel sounds: Normal Tenderness: Nontender Organomegaly: No organomegaly - Back Back: Normal, Nontender - Extremities General upper extremity: Normal inspection, Nontender, Normal color, Normal ROM, Normal temperature General lower extremity: Normal inspection, Nontender, Normal color, Normal ROM, Normal temperature, Normal weight bearing. No: Cristhian's sign - Neurological Neuro grossly intact: Yes Cognition: Normal Orientation: AAOx4 Vielka Coma Scale Eye Opening: Spontaneous [place] Coma Scale Verbal: Oriented Vielka Coma Scale Motor: Obeys Commands Vielka Coma Scale Total: 15 Speech: Normal Motor strength normal: LUE, RUE, LLE, RLE Sensory: Normal - Psychological Associated symptoms: Normal affect, Normal mood - Skin Skin Temperature: Warm Skin Moisture: Dry Skin Color: Normal Course - Re-evaluation Re-evalutation: 01/01/20 22:23 After performing a Medical Screening Examination, I estimate there is LOW risk for ACUTE CORONARY SYNDROME, RESPIRATORY FAILURE, SEPSIS OR MENINGITIS, thus I consider the discharge disposition reasonable. I have reevaluated this patient multiple times and no significant life threatening changes are noted. The patient and I have discussed the diagnosis and risks, and we agree with discharging home with close follow-up. We also discussed returning to the Emergency Department immediately if new or worsening symptoms occur. We have discussed the symptoms which are most concerning (e.g., changing or worsening pain, trouble swallowing or breathing, neck stiffness, fever) that necessitate immediate return. - Vital Signs Vital signs: Temp Pulse Resp BP Pulse Ox 100.2 F 87 16 116/69 96 01/01/20 11:27 01/01/20 11:27 01/01/20 11:27 01/01/20 11:27 01/01/20 11:27 - Diagnostic Test Radiology reviewed: Image reviewed, Reports reviewed Discharge - Discharge Clinical Impression: Viral sore throat URI (upper respiratory infection) Qualifiers: URI type: unspecified viral URI Qualified Code(s): J06.9 - Acute upper respiratory infection, unspecified Condition: Stable Disposition: HOME, SELF-CARE Additional Instructions: SORE THROAT: Sore throats may be caused by viruses, bacteria, or fungi. Most are due to a virus, and must get better on their own. Bacterial sore throats, particularly those due to "strep," need treatment with antibiotics. If an antibiotic is prescribed, be sure to take the medication for a full 10 days. Failure to take the antibiotic can result in complications such as rheumatic fever. Sometimes, an injection of antibiotics is given instead of pills or liquid. This single "shot" is equal in effectiveness to the oral medication. To relieve symptoms, take acetaminophen for pain. Sip clear liquids frequently, or eat popsicles or ice chips. Anesthetic sprays or lozenges may help. Make sure the air in the room is not too dry. Avoid using decongestants or antihistamines. Call the doctor if there is no improvement in two days, or if you have difficulty breathing, increasing throat pain, high fever, rash, or frequent vomiting. UPPER RESPIRATORY ILLNESS: You have a viral infection of the respiratory passages -- a "cold." This common infection causes nasal congestion, drainage, and often sore throat and cough. It is highly contagious. The disease usually lasts about 10 to 14 days. There is no "cure" for the viral infection -- it must run its course. If there is a complication, such as bacterial infection in the nose, sinuses, middle ear, or bronchial tubes, antibiotics may be required. The antibiotics won't affect the virus. Drink plenty of fluids. A humidifier may help. An expectorant medication or decongestant may make you more comfortable. Use acetaminophen or ibuprofen for fever or aches. See the doctor if fever persists over two days, if there is any significant worsening of your symptoms, or if you simply fail to improve as expected. You have been recommended treatment with Claritin 10 mg Sudafed 30 mg and Mucinex 600 mg. These are all [id number] medications for cough cold congestion. You do need to call the go to the pharmacist to get the Sudafed from behind the counter please get a little red pills they are more effective. You could also use Flonase which is [id number] 1 spray each nostril twice a day. You could also use salt soda solution gargles. These will help to remove the drainage from the back your throat. Chloraseptic spray was [id number] that will also help with your sore throat. Salt and soda solution gargle 1 quart of water 1 tablespoon of salt 1 teaspoon of baking soda Mixed 3 ingredients together and boil for 1 minute Placed in a covered quart jar Use 1/2 ounce of cold solution to gargle 3 times a day COUGH-SUPPRESSANT & EXPECTORANT MEDICATION: You are to use a cough medication as needed for relief of symptoms. This medicine is a combination of an expectorant (to make the mucous thinner and more easily "coughed up") and a cough suppressant (to reduce the frequency of coughing). The cough-suppressant medicine is related to narcotics. You may experience mild nausea and sleepiness. Some patients who are very sensitive to narcotics may have stomach pain from this medicine. Taking the medicine with food reduces these side effects. Do not drive or work with machinery until you know how this medicine affects you. The expectorant should have no side effects. Iodine-containing expec torants (such as organidin) should not be taken by persons with active thyroid disease unless approved by your doctor. Call the doctor if you develop shortness of breath, hives, rash, itching, lightheadedness, or severe nausea and vomiting. USE OF ACETAMINOPHEN (Tylenol): Acetaminophen may be taken for pain relief or fever control. It's much safer than aspirin, offering a wider range of "safe" dosages. It is safe during . Some brand names are Tylenol, Panadol, Datril, Anacin 3, Tempra, and Liquiprin. Acetaminophen can be repeated every four hours. The following are maximum recommended dosages: >89 pounds or adults 650 mg to 900 mg Acetaminophen can be repeated every four hours. Maximum dose not to exceed 4000 mg a day. SMOKING: If you smoke, you should stop smoking. The tar and chemicals in cigarette smoke are harmful. Smoking has been shown to cause: emphysema chronic bronchitis lung cancer mouth and throat cancer stomach and pancreas cancer premature aging defects In addition, smoking increases ear and lung infections in children of smokers. FOLLOW-UP CARE: If you have been referred to a physician for follow-up care, call the physicians office for an appointment as you were instructed or within the next two days. If you experience worsening or a significant change in your symptoms, notify the physician immediately or return to the Emergency Department at any time for re-evaluation. Forms: Smoking Cessation Education, Return to Work Referrals: HALEY GLOVER PA-C [NO LOCAL MD] - Follow up as needed
[2020-01-01 10:57] LABS: A TYPE INFLUENZA AG NEGATIVE (NEGATIVE); B INFLUENZA AG NEGATIVE (NEGATIVE)
--- NOTE | 2020-01-01 11:01 | RADIOLOGY REPORT (SQ) ---
EXAM DESCRIPTION: CHEST 2 VIEWS COMPLETED DATE/TIME: 01/01/2020 10:52 am REASON FOR STUDY: cough fever COMPARISON: PA and lateral views of the chest from 11/07/2017 EXAM PARAMETERS: NUMBER OF VIEWS: Two views. TECHNIQUE: PA and lateral views of the chest were obtained. RADIATION DOSE: NA LIMITATIONS: none FINDINGS: LUNGS AND PLEURA: No consolidation, pleural effusion or pneumothorax. MEDIASTINUM AND HILAR STRUCTURES: No mediastinal or hilar contour abnormality. HEART AND VASCULAR STRUCTURES: The cardiac silhouette and pulmonary vasculature are within normal pizarro its. BONES: No acute findings. HARDWARE: None in the chest. OTHER: No other finding. IMPRESSION: No acute cardiopulmonary process. TECHNICAL DOCUMENTATION: JOB ID: [id number]- All Rights Reserved Reading location - IP/workstation name: [email or web address]
[2020-01-01 11:29] VITALS: BP 116/69
== END 2020-01-01 11:54 | disposition home or self-care (01) ==
LOC: ER 09:37
DX: J02.8 Acute pharyngitis due to other specified organisms (principal); B97.89 Other viral agents as the cause of diseases classified elsewhere; R05 Cough; R50.9 Fever, unspecified; R09.82 Postnasal drip; R09.89 Other specified symptoms and signs involving the circulatory and respiratory systems; J34.89 Other specified disorders of nose and nasal sinuses; R09.81 Nasal congestion; J45.909 Unspecified asthma, uncomplicated; F17.210 Nicotine dependence, cigarettes, uncomplicated; F17.290 Nicotine dependence, other tobacco product, uncomplicated; Z71.6 Tobacco abuse counseling; Z87.01 Personal history of pneumonia (recurrent)
CPT/HCPCS: 71046; 87070; 87804; 87880; 99283; 99406